=== PATIENT | female | born 1995 | race Caucasian/White ===

== ENCOUNTER 2021-03-23 10:13 | Emergency (ER) | payer BC, SELFPAY ==
--- NOTE | 2021-03-23 10:21 | ED.URI ---
HPI - URI/Sore Throat General Chief Complaint: Ear Stated Complaint: muffled hearing/ears draining Time Seen by Provider: 03/23/21 10:42 Source: patient and RN notes reviewed Mode of arrival: ambulatory Limitations: no limitations History of Present Illness HPI Narrative: 26-year-old female presents concern for bilateral ear pain, drainage, muffled hearing. She reports approximately 3 months ago she had a middle ear infection which was treated with drops. Reports symptoms resolved. Reports mild symptoms of the last 2 months, symptoms have worsened over the last 3 days. She denies rhinorrhea, nasal congestion, sore throat, fever, cough. MD elicited complaint: other (Ear pain) Related Data Allergies Allergy/AdvReac Type Severity Reaction Status Date / Time No Known Allergies Allergy Unknown Verified 03/23/21 10:35 Review of Systems Review of Systems: Narrative: CONSTITUTIONAL: Denies malaise, chills, sweats, or fever. EYES: Denies visual changes, redness, or discharge. ENT: Denies rhinorrhea, congestion, sinus pain, and sore throat. Reports bilateral ear pain, drainage, decreased hearing CARDIOVASCULAR: Denies chest pain, palpitations, or edema. RESPIRATORY: Denies cough or dyspnea. GASTROINTESTINAL: Denies abdominal pain, nausea, vomiting, diarrhea SKIN: Denies rash or itching. MUSCULOSKELETAL: Denies myalgia. NEUROLOGIC: Denies headache. All systems reviewed & are unremarkable except as noted in HPI and below PMFSH Comments At time of signature, agree with nursing past medical, surgical, social and family history. There is no relevant family history pertinent to the presenting complaint Exam Narrative: Exam Narrative: GENERAL: Well-appearing, well-nourished, and in no acute distress. HEAD: Normocephalic EYES: PERRLA, conjunctivae clear ENT: Nares clear. Mucous membranes moist. TM pearly mcwilliams with sharp light reflex bilaterally; no tragal tenderness, bilateral auditory canal erythema, edema, purulent drainage. Oropharynx not erythematous without lesions. Tonsils not enlarged and without exudate, no drooling, no hoarseness, no trismus, uvula midline. NECK: Supple. No lymphadenopathy CHEST: No respiratory distress, speaks in full sentences. HEART: Regular rate and rhythm. No murmur heard. SKIN: Warm, dry, no rash. NEURO: Alert and oriented x3. PSYCH: Normal mood and affect Course Course Emergency Course: Patient is aware of diagnosis, understands and agrees to treatment plan. Anticipatory guidance given. Patient agrees to follow-up as directed and is aware of reasons to seek care at the emergency department. Portions of this record may have been created with voice recognition software Vital Signs Vital signs: Vital Signs Temperature 98.6 F 03/23/21 10:36 Pulse Rate 77 03/23/21 10:36 Respiratory Rate 16 03/23/21 10:36 Blood Pressure 132/84 03/23/21 10:36 Pulse Oximetry 99 03/23/21 10:36 Temperature 98.6 F 03/23/21 10:36 Pulse Rate 77 03/23/21 10:36 Respiratory Rate 16 03/23/21 10:36 Blood Pressure 132/84 03/23/21 10:36 Pulse Oximetry 99 03/23/21 10:36 Reviewed. MDM - URI/Sore Throat MDM Narrative Medical decision making narrative: Differential diagnosis considered: Plunkett virus, strep pharyngitis, allergic rhinitis, upper respiratory tract infection, sinusitis, rhinosinusitis, nasopharyngitis. viral pharyngitis, otitis media, otitis externa, pneumonia, bronchitis, viral cough syndrome, viral syndrome, and influenza. Exam findings show no acute concerns or changes; patient is non-toxic appearing and is in no distress. Patient is appropriate for outpatient treatment and follow-up. Critical Care Time Critical Care Time Critical Care Time: No Discharge Plan Discharge Clinical Impression: Otitis externa Qualifiers: Otitis externa type: unspecified type Chronicity: acute Laterality: bilateral Qualified Code(s): H60.503 - Unspecified acute noninfective otitis externa, bilateral
[2021-03-23 10:36] VITALS: BP 132/84; PULSE 77; RESP 16; TEMP 37; O2SAT 99
== END 2021-03-23 11:05 | disposition home or self-care (01) ==
PROVIDERS: Emergency Provider Nurse Practitioner
DX: H60.503 Unspecified acute noninfective otitis externa, bilateral (principal)
CPT/HCPCS: 99203; G0463

== ENCOUNTER 2021-03-26 13:04 | Emergency (ER) | payer BC, SELFPAY ==
[2021-03-26 13:34] VITALS: BP 145/90; PULSE 100; RESP 18; TEMP 37.5; O2SAT 99
--- NOTE | 2021-03-26 17:38 | ED.EAR ---
HPI - Ear Problem General Chief complaint: Ear Stated complaint: Swollen Throat,ears clogged Time Seen by Provider: 03/26/21 17:09 Source: patient Mode of arrival: ambulatory Limitations: no limitations History of Present Illness HPI Narrative: Patient is a 26-year-old female who presents complaining of muffled ears x3 days and sore throat starting approximately 2 days ago. Patient reports being seen in urgent care on Thursday and given eardrops for ears. Patient reports sore throat started next day. She reports fever and body aches x1 day. Patient is afebrile at this time. She denies significant medical history. She reports taking [id number] medications with limited relief. MD Complaint: other (Sore throat) Related Data Allergies Allergy/AdvReac Type Severity Reaction Status Date / Time No Known Allergies Allergy Unknown Verified 03/26/21 17:08 Review of Systems Review of Systems: Narrative: CONSTITUTIONAL: Denies fever, chills, or sweats. EYES: Denies visual changes, redness, or discharge. ENT: Reports sore throat and muffled ears bilaterally CARDIOVASCULAR: Denies chest pain, palpitations, or edema. RESPIRATORY: Denies cough or dyspnea. GASTROINTESTINAL: Denies abdominal pain, nausea, vomiting, or diarrhea. GENITOURINARY: Denies dysuria or hematuria. SKIN: Denies rash or itching. MUSCULOSKELETAL: Denies back pain, joint pain, or myalgia. NEUROLOGIC: Denies headache, numbness, dizziness, or weakness. PSYCHIATRIC: Denies anxiety or depression. [facility] Social History Social History (Updated 03/26/21 @ 17:41 by NAILA Burns) Smoking status: Never smoker Alcohol intake: never Substance use: never Living arrangements: with family Comments At the time of signature, I have reviewed and agree with nursing past medical, surgical, social, and family history unless otherwise noted. Please see nursing chart for further information. There is no relevant family history pertinent to the presenting complaint. Exam Narrative: Exam Narrative: GENERAL: Well-appearing, well-nourished, and in no acute distress. HEAD: Normocephalic, atraumatic. EYES: EOMI. No redness or drainage. Conjunctiva are normal. ENT: Mucous membranes pink and moist. Nares clear. No rhinorrhea. TMs normal bilaterally. Throat with moderate erythema and edema. Uvula midline. NECK: AROM. Supple. Positive cervical lymphadenopathy. CHEST: No respiratory distress. HEART: Regular rate and rhythm. EXTREMITIES: Normal range of motion. No edema. SKIN: Warm, dry, no rash. NEURO: No focal deficits. Alert and oriented x3. Gait steady. PSYCH: Normal affect. No signs of depression or anxiety. Course Vital Signs Vital signs: Vital Signs Temperature 37.5 C 03/26/21 13:34 Pulse Rate 100 03/26/21 13:34 Respiratory Rate 18 03/26/21 13:34 Blood Pressure 145/90 H 03/26/21 13:34 Pulse Oximetry 99 03/26/21 13:34 Temperature 37.5 C 03/26/21 13:34 Pulse Rate 100 03/26/21 13:34 Respiratory Rate 18 03/26/21 13:34 Blood Pressure 145/90 H 03/26/21 13:34 Pulse Oximetry 99 03/26/21 13:34 Reviewed-patient is informed that they may have pre-hypertension or hypertension based on a blood pressure reading. I recommend the patient call the primary care provider listed on their discharge instructions or a physician of their choice this week to arrange follow-up for further evaluation of possible pre-hypertension or hypertension. Medical Decision Making MDM Narrative Medical decision making narrative: Patient is afebrile and nontoxic in appearance. Patient's rapid strep is positive. Discussed with patient starting antibiotics at this time as well as good hydration and [id number] medications for pain and fever. Patient agrees with plan of care. Patient is stable for discharge to home with outpatient follow-up as discussed. Differential Diagnosis Differential Diagnosis: Pharyngitis, tonsillitis, strep throat, viral illnes
== END 2021-03-26 18:40 | disposition home or self-care (01) ==
PROVIDERS: Emergency Provider Nurse Practitioner
DX: J02.0 Streptococcal pharyngitis (principal)
CPT/HCPCS: 87880; 99283